=== PATIENT | male | born 1980 | race Caucasian/White ===

== ENCOUNTER → 2019-08-13 11:45 | Outpatient (CLI) | payer OTHER | END | disposition home or self-care (01) | LOC: D.RAD 11:45 | PROVIDERS: ATTEND Family Medicine | DX: M25.512 Pain in left shoulder (principal); M54.12 Radiculopathy, cervical region ==

== ENCOUNTER → 2019-08-19 14:54 | Outpatient (CLI) | payer OTHER | END | disposition home or self-care (01) | LOC: D.MRI 14:54 | PROVIDERS: ATTEND Family Medicine | DX: M54.12 Radiculopathy, cervical region (principal); M54.14 Radiculopathy, thoracic region ==

== ENCOUNTER 2020-04-14 16:57 | Emergency (ER) | payer OTHER ==
[~2020-04-14] VITALS: Ht 175.3 cm; Wt 75.0 kg
[2020-04-14 17:10] VITALS: Ht 175.3 cm; Wt 75.0 kg
[2020-04-14] MEDS ORDERED: HYDROCODON-ACE1 EA10 PO ×2 (17:11→21:29)
[2020-04-14] MEDS ORDERED: OMEPRAZOLE40 MG PO (21:29)
[2020-04-14] MEDS ORDERED: STERAPRED 5MG 65 M1 PO (21:29)
[2020-04-14 21:42] VITALS: BP 134/78
== END 2020-04-14 21:44 | disposition home or self-care (01) ==
LOC: D.ER 16:57
DX: M48.02 Spinal stenosis, cervical region (principal); M54.2 Cervicalgia

== ENCOUNTER → 2020-04-19 12:33 | Outpatient (CLI) | payer OTHER ==
[2020-04-14 17:10] VITALS: BMI 24.4
[~2020-04-19 12:33] MED LIST: HYDROCODON-ACE1 EA10 PO; MEDROL DOSE PACK4 MG PO; OMEPRAZOLE40 MG PO; PERCOCET 10-321 EAC1 PO; STERAPRED 5MG 65 M1 PO
== END | disposition home or self-care (01) ==
LOC: D.LABREF 12:33
PROVIDERS: ATTEND Internal Medicine Pulmonary Disease
DX: Z11.59 Encounter for screening for other viral diseases (principal)

== ENCOUNTER 2020-04-20 11:00 | Day surgery (SDC) | payer OTHER ==
[2020-04-20] VITALS (7 sets, daily range): BP systolic 133–145; BP diastolic 75–89; Ht 175.3 cm; Wt 77.6 kg
[~2020-04-20] VITALS: Ht 175.3 cm; Wt 77.6 kg
--- NOTE | ~2020-04-20 | OP ---
PATIENT NAME: LAZ PACE MEDICAL RECORD: [id number] :84 LOCATION:D.OPS ADMISSION DATE: SURGEON: ADAM SOOD MD DATE OF OPERATION: 04/20/2020 PREOPERATIVE DIAGNOSES: Disc herniation and osteophyte formation at C5-C6 and C6-C7. POSTOPERATIVE DIAGNOSES: Disc herniation and osteophyte formation at C5-C6 and C6-C7. PROCEDURE: Mobi-C arthroplasty at the C5-C6 and C6-C7. SURGEON: Adam Sood MD DESCRIPTION AND TECHNIQUE: After induction of general endotracheal anesthesia, the patient was positioned in a neutral position on the operating table. Neck was prepped and draped in usual sterile fashion. Fluoroscopic x-ray and freer localized to the C5-6 and C6-C7 interspace. A transverse skin incision was carried out in the midline to the sternocleidomastoid muscle. The platysma was divided with a sharp dissection with a 15 blade. Using blunt and sharp dissection with Metzenbaum scissors, I proceeded in an avascular plane medial to the carotid sheath. The C5-C6 and C6-C7 interspaces were identified with fluoroscopic x-ray and a spinal needle. The longus colli muscles were elevated from bodies of C5, C6, and C7. The bony endplates were prepared with curettes. The posterior longitudinal ligament was removed with Cloward rongeurs at each level. After this, osteophytes were drilled away posteriorly with Midas-Lisandro drill with the microscope and appropriate size artificial disc was placed at 5-6 and 6-7 under fluoroscopic control using Mobi-C artificial disc replacement hardware. Good position of the hardware was confirmed with fluoroscopic x-ray. Meticulous hemostasis was maintained throughout the wound. The wound was irrigated with copious amounts of Ancef irrigant solution. The platysma was closed with a 4-0 Vicryl suture. The subdermal layer was closed with 4-0 Vicryl suture. The skin was reapproximated with Steri-Strips and benzoin. A sterile dressing was applied to the wound. The patient was awakened in good condition, taken to recovery. All counts were reported as correct. Estimated blood loss was minimal. TRANSINT:[id number] Voice Confirmation ID: [id number] DOCUMENT ID: [id number] ADAM SOOD MD CC: [id number] DICTATION DATE: 04/25/20 1220 [employer] LICENSEE: 04/25/20 2245 [facility] 04/21/20 [place] [id number] [place] [id number]
[~2020-04-20 11:00] MED LIST changes: -MEDROL DOSE PACK4 MG PO
--- NOTE | 2020-04-20 18:40 | NUR ---
PT RECIEVED TO ROOM WITH RECOVERY STAFF, STATED THEY WOULD CONTINUE IN ROOM TO COMPLETE RECOVERY TIME
--- NOTE | 2020-04-20 20:00 | NUR ---
RECIEVED REPORT FROM RECOVERY NURSE, PT A/OX4, LUNGS CLEAR, INCISION TO ANTERIOR NECK WITH DURABOND OVER SITE, RIGHT AC PIV INTACT WITH NS @ 50 CC/HR, NO DISTRESS NOTED, VITALS STABLE
--- NOTE | 2020-04-20 21:00 | NUR ---
PRESENT AT BEDSIDE, PT EATING JELLO WITHOUT DIFFICULTY, WILL CONT TO MONITOR
[2020-04-21] VITALS (10 sets, daily range): BP systolic 114–146; BP diastolic 63–81
--- NOTE | 2020-04-21 01:36 | NUR ---
PT REMAINS AWAKE WATCHING TV WITH NO C/O, VITALS STABLE
--- NOTE | 2020-04-21 06:43 | NUR ---
PT AWAKE WATCHING TV WITH NO C/O, WILL CONT TO MONITOR
[2020-04-21] MEDS ORDERED: MEDROL DOSE PACK4 MG PO (15:47)
--- NOTE | 2020-04-21 15:49 | NUR ---
1541: DISCHARGE INSTRUCTIONS REVIEWED WITH PATIENT AND . PRESCRIPTIONS GIVEN FOR PAIN MED AND MEDROL DOSE PACK. 1545: DISCHARGED HOME WITH .
== END 2020-04-21 15:45 | disposition home or self-care (01) ==
LOC: D.OPS 11:00 → D.CVICU 11:00 → D.OPS 12:45 → D.CVICU 19:26 → D.OPS 04-21 15:45
PROVIDERS: ATTEND Neurological Surgery
DX: M50.222 Other cervical disc displacement at C5-C6 level (principal); M25.78 Osteophyte, vertebrae; M54.12 Radiculopathy, cervical region; M53.82 Other specified dorsopathies, cervical region